=== PATIENT | male | born 1940 | race Caucasian/White ===

== ENCOUNTER 2022-03-09 05:44 | Observation (INO) ==
--- NOTE | 2022-02-26 10:36 | Anesthesiology Consultation ---
Date of Service February 26, 2022 Assessment & Plan (1) Encounter for pre-operative examination: Chart Review Chart Review: Patient NOT seen in Pre Admission Testing -Discussed preop EKG with Dr. Leong- changes from 2018 EKG- will need cardiac evaluation prior to surgery. Pt's and surgeon's office informed. Per nursing assessment 02/26/22, patient denies any recent travel. No known Covid positive exposures or Covid related symptoms. No known Covid infection in the past 90 days. Pt is fully vaccinated for Covid. Preop Covid testing scheduled 02/26/22= will await results. Cystolithopaxy 01/31/18= Done under [facility] with LMA #5. Atraumatic x 1. History Surgery Operation Date: 03/02/22 14:30 Proposed Procedures p Transurethral Resection Prostate - Serge Lara MD s Cystolithopaxy - Serge Lara MD Height/Weight Height: 5 ft 8 in Weight: 104.326 kg Allergies Allergy/AdvReac Type Severity Reaction Status Date / Time No Known Allergies Allergy Unverified 02/26/22 09:08 Medications Home Medications Medication Instructions Recorded Confirmed Last Taken aspirin 81 mg capsule 81 mg PO QAM 02/26/22 02/26/22 Unknown tamsulosin 0.4 mg capsule 0.4 mg PO QPM 02/26/22 02/26/22 Unknown Past Medical History Medical History Bladder calculi BPH w urinary obs/LUTS History of colon cancer (~2013) Osteoarthritis Past Family History Family History Other No family history of adverse response to anesthesia Past Surgical History Surgical History History of cataract surgery bilateral History of cholecystectomy open History of colon resection (~2013) [facility] History of colonoscopy History of esophagogastroduodenoscopy (EGD) History of tonsillectomy S/p total knee replacement, bilateral Social History Smoking Status: Never smoker Do You Dip or Chew Tobacco: No Hx Alcohol Use: No Hx Substance Use: No substance use type: does not use Testing Laboratory Results 02/17/22= WBC: 8.83 H/H: 14.8/45.9 PLATELETS: 159 SODIUM: 144 POTASSIUM: 4.0 CHLORIDE: 113 CO2: 25.3 BUN: 15.9 CREATININE: 1.03 GLUCOSE: 114 02/09/22= UA: Large urine blood, positive urine nitrite, 10-30 urine RBC, 2+ urine bacteria URINE CULTURE: Coag negative Staphylococcus 70,000 CFU/ml Electrocardiogram Date: 02/17/22 Findings: + SB @ (56bpm ) Inferior myocardial infarction, probably old (40+ ms Q wave and/or ST/T abnormality in II/aVF) Anterolateral myocardial infraction of indeterminate age (40+ ms Q wave in II/aVL/V3-V6) Chest X-Ray Date: 02/17/22 Findings: + NAD
[2022-03-09] MEDS ORDERED: LACTATED RINGER'S 1,000 ML IV SCH (06:00)
[2022-03-09] MEDS ORDERED: CIPROFLOXACIN / D5W 400 MG/200 ML BAG IV SCH (06:00)
[2022-03-09] MEDS ORDERED: ePHEDrine sulfate 50 MG/ML AMP IV PRN (06:48)
[2022-03-09] MEDS ORDERED: ONDANSETRON INJ 2 MG/ML 2 ML VIAL IV PRN (06:48)
[2022-03-09] MEDS ORDERED: ATROPINE SULFATE 0.1 MG/ML 10ML SYR IV PRN (06:48)
[2022-03-09] MEDS ORDERED: fentaNYL citrate 100 MCG/2 ML VIAL IV PRN (06:48)
[2022-03-09] MEDS ORDERED: LIDOCAINE 2% 2 ML VIAL/AMP(20MG/ML) INFIL ONE (07:07)
[2022-03-09] MEDS ORDERED: ONDANSETRON INJ 2 MG/ML 2 ML VIAL ONE (07:07)
[2022-03-09] MEDS ORDERED: ePHEDrine sulfate 50 MG/ML AMP ONE (07:07)
[2022-03-09] MEDS ORDERED: PHENYLEPHRINE 100MCG/ML 5ML SYR ONE (07:07)
[2022-03-09] MEDS ORDERED: PROPOFOL IV EMULSION 10 MG/ML 20 ML VIAL IV ONE (07:07)
[2022-03-09] MEDS ORDERED: fentaNYL citrate 100 MCG/2 ML VIAL ONE (07:08)
--- NOTE | 2022-03-09 07:24 | History & Physical Bridge Note ---
Date of Service March 09, 2022 History & Physical Bridge Note I have examined the patient, reviewed the History & Physical and in the interval since the performance of the History & Physical I have noted the following changes of clinical significance: no changes noted
--- NOTE | 2022-03-09 09:16 | Operative Report ---
PG Post Operative Report Pre & Post Diagnosis Operation Date: 03/09/22 07:30 Pre-Op Diagnosis: Benign Prostatic Hyperplasia, Bladder Stones Post-Op Diagnosis: Benign Prostatic Hyperplasia, Bladder Stones I identified the patient and participated in the time-out.: Yes Procedure Operation Date: 03/09/22 07:30 Actual Procedures p Transurethral Resection Prostate - Serge Lara MD s Cystolithopaxy - Serge Lara MD Surgeon Serge Lara MD Lead Based Paint Technician none Estimated Blood Loss 0 Findings Consistent with Post-Op Diagnosis Specimens 1. Bladder stones for chemical analysis Description of Procedure The patient was identified in the preoperative holding area, appropriate informed consents were reviewed and completed and the patient was transferred to the operative suite. Upon arrival, appropriate antibiotics and anesthesia were administered and the patient was placed in dorsal lithotomy position and prepped and draped in sterile fashion. To begin the case I attempted to pass a 26 Palauan resectoscope, however, his meatus was quite stenotic and required a dilation. I began at 16 Palauan and di lated to 30 Palauan. I was unable to subsequently pass the scope without incident. 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 His prostate is enlarged with a high bladder neck and intravesical intrusion circumferentially. His bladder also is filled with stones. There were innumerable small stones in approximately 8-10 larger stones over each over 1 to 2 cm in size on initial imaging it appeared that there was one very large calculus but I think this was a series of these smaller stones that were superimposed upon each other. His bladder is trabeculated but otherwise healthy. Given the high bladder neck, access to the stones was somewhat challenging so I begin the case with a button electrode and I incised the bladder neck at 5 and 7:00 and then resected the intervening tissue. This drastically improved the appearance of the bladder neck and allowed easier access to the stones. At that time I switched to a laser bridge and a 1000 m laser fiber and began to fragment the largest stones. We proceeded through all stones until I could irrigate the stone debris out of the bladder through the scope. After confirming that all stone debris had been removed I turned my attention back to the prostate. Utilizing the button electrode I resected the left and right lateral lobes followed by the intravesical components of the prostate. There was some redundant anterior tissue which was treated as well. I completed my resection by trimming apical tissues and ensuring meticulous hemostasis. His prostatic fossa was widely patent at the conclusion of the case. Placed a 22 Palauan Lay catheter without incident and he was reversed of anesthesia and taken to the recovery room in stable condition. There were no complications. I attest to the content of the Intraoperative Record and any orders documented therein. Any exceptions are noted below.
[2022-03-09 09:33] LABS: Basophils # (auto) 0.03 K/uL (0-0.2); Basophils % (auto) 0.4 %; Eosinophils # (auto) 0.21 K/uL (0-0.5); Eosinophils % (auto) 2.5 %; Hematocrit (blood only) 44.8 % (42-52); Hemoglobin 15.1 g/dL (14.0-18.0); Immature Granulocytes # (auto) 0.04 K/uL (0.00-0.02); Immature Granulocytes % (auto) 0.5 %; Lymphocytes # (auto) 1.55 K/uL (1.2-3.4); Lymphocytes % (auto) 18.4 %; Mean Corpuscular Hemoglobin 30.8 pg (25-34); Mean Corpuscular Volume 91.2 fL (80-100); Mean Platelet Volume 10.3 fL (7.4-10.4); Monocytes # (auto) 0.52 K/uL (0.11-0.59); Monocytes % (auto) 6.2 %; Neutrophils # (auto) 6.08 K/uL (1.4-6.5); Platelet Count 149 K/uL (130-400); RDW Standard Deviation 47.1 fL (36.4-46.3); Red Blood Count 4.91 M/uL (4.7-6.1); White Blood Count 8.43 K/uL (4.8-10.8)
[2022-03-09 09:37] LABS: Mean Corpuscular Hgb Conc 33.7 g/dL (32-36)
[2022-03-09 09:45] LABS: BUN Creatinine Ratio 18.4 (10-20); Calcium 8.9 mg/dl (8.5-10.1); Creatinine Clr Calc Pharmacy 65.6 ml/min; Est GFR (Non-African American) 67.3 ml/min
--- NOTE | 2022-03-09 09:56 | Anesthesiology Progress Note ---
Date of Service March 09, 2022 Anesthesia Post Procedure Vital Signs Vital Signs: Temp Pulse Pulse Resp BP Pulse Ox 03/09/22 09:30 91 H 18 130/70 94 03/09/22 09:20 97.3 F L 93 H 18 151/95 H 95 03/09/22 09:10 93 H 18 148/86 H 96 03/09/22 09:02 97.2 F L 88 18 148/80 H 96 03/09/22 06:11 98.2 F 69 20 188/97 H 97 Transfer of Care Handoff Completed per policy Notes Mental Status: alert / awake / arousable and participated in evaluation Patient Amnestic to Procedure: Yes Nausea / Vomiting: adequately controlled Pain: adequately controlled Airway Patency, RR, SpO2: stable & adequate BP & HR: stable & adequate Hydration State: stable & adequate Anesthetic Complications: no major complications apparent and Pt Satisfied with anesthetic care
[2022-03-09] MEDS ORDERED: ACETAMINOPHEN 325 MG TAB PO PRN (09:57)
[2022-03-09] MEDS ORDERED: HYDROCODONE/ACETAMOPHEN 5/325MG TAB PO PRN (09:57)
[2022-03-09] MEDS: LACTATED RINGER'S 1,000 ML IV SCH (10:26)
[2022-03-10] MEDS: LACTATED RINGER'S 1,000 ML IV SCH (05:33)
[2022-03-10 07:12] LABS: Basophils # (auto) 0.02 K/uL (0-0.2); Basophils % (auto) 0.1 %; Eosinophils # (auto) 0.18 K/uL (0-0.5); Eosinophils % (auto) 1.2 %; Hematocrit (blood only) 44.7 % (42-52); Immature Granulocytes # (auto) 0.04 K/uL (0.00-0.02); Immature Granulocytes % (auto) 0.3 %; Lymphocytes # (auto) 1.28 K/uL (1.2-3.4); Lymphocytes % (auto) 8.8 %; Mean Corpuscular Hemoglobin 30.2 pg (25-34); Mean Corpuscular Hgb Conc 33.6 g/dL (32-36); Mean Corpuscular Volume 90.1 fL (80-100); Mean Platelet Volume 10.3 fL (7.4-10.4); Monocytes # (auto) 1.24 K/uL (0.11-0.59); Monocytes % (auto) 8.5 %; Neutrophils % (auto) 81.1 %; Platelet Count 184 K/uL (130-400); RDW Coefficient of Variation 14.2 % (11.5-14.5); RDW Standard Deviation 46.8 fL (36.4-46.3); Red Blood Count 4.96 M/uL (4.7-6.1); White Blood Count 14.56 K/uL (4.8-10.8)
[2022-03-10 07:31] LABS: BUN Creatinine Ratio 12.3 (10-20); Calcium 8.6 mg/dl (8.5-10.1); Creatinine Clr Calc Pharmacy 63.7 ml/min; Est GFR (African American) 75.4 ml/min; Potassium 3.8 mmol/L (3.5-5.1)
--- NOTE | 2022-03-10 08:07 | Urology Progress Note ---
Date of Service March 10, 2022 Assessment & Plan (1) Benign prostatic hyperplasia (BPH) with straining on urination: (2) Bladder calculi: Plan: Postop day #1 status post TURP and litholapaxy Plan for voiding trial this morningdischarge home after void Admission and Anticipated Discharge Date Admission Date: March 09, 2022 Subjective No major issues overnight Tolerated the catheter relatively well Pain controlled Urine is clear today Physical Exam Physical Exam: Well-positioned Lay catheter draining clear yellow urine Results & Data ([facility]) Vital Signs (Past 12 Hours) Vital Signs Temp Pulse Resp BP Pulse Ox 03/10/22 07:18 36.9 C 73 18 163/79 H 95 03/10/22 03:03 36.8 C 73 18 128/76 93 03/09/22 22:28 37.2 C 71 20 122/72 93 PG Care Time/CCT Total # of Minutes Spent Total Time Spent with Patient: Total time spent is greater than 50% in coordination of care (as documented) at patient's floor/unit and/or counseling patient: Coding Level of Care Code None Diagnoses Benign prostatic hyperplasia (BPH) with straining on urination N40.1; R39.16 Bladder calculi N21.0
--- NOTE | 2022-03-10 13:57 | Discharge Summary ---
Date of Service March 10, 2022 Admission HPI Per Admitting Provider 81-year-old male with BPH and bladder calculi who presents for transurethral resection of the prostate and cystolitholapaxy. Admission Exam Per Admitting Provider Constitutional well developed and well nourished Neck neck nontender Respiratory normal respiratory effort; no respiratory distress and does not use accessory muscles Cardiovascular Rate/Rhythm: regular rate Vessels: radial pulses present Extremities: no edema Gastrointestinal (Abdomen) Inspection/Auscultation: abdomen normal to inspection Percussion/Palpation: abdomen soft; abdomen nontender and no guarding Musculoskeletal Head/Neck/Chest: normocephalic and head atraumatic Extremities: extremities normal to inspection Skin no rashes and no lesions Trauma: no evidence of skin trauma Neurologic awake; not obtunded Speech / Cognition: normal speech Motor/Sensory: no tremor Psychiatric Orientation: alert and oriented x 3 Genitourinary no CVA tenderness Lymphatic no lymphadenopathy Principal Diagnosis Benign Prostatic Hyperplasia, Bladder Stones Discharge Exam Constitutional well developed and well nourished; no acute distress Respiratory no respiratory distress and no labored breathing Gastrointestinal (Abdomen) Inspection/Auscultation: abdomen normal to inspection Skin Warm and dry Neurologic moves all extremities and awake Psychiatric A+Ox3, euthymic affect Discharge Data Allergies Allergy/AdvReac Type Severity Reaction Status Date / Time No Known Allergies Allergy Verified 03/09/22 06:09 Procedures Performed Operation Date: 03/09/22 07:30 Actual Procedures p Transurethral Resection Prostate - Serge Lara MD s Cystolithopaxy - Serge Lara MD Hospital Course (1) BPH w urinary obs/LUTS: (2) Bladder calculi: 81yo M admitted status post TURP and cystolitholapaxy. - Tolerated procedure very well. - No acute issues postoperatively. - Progressed appropriately overnight. - Passed a voiding trial on the morning of POD#1. - Pt discharged home in stable condition. Total Time Total Time Spent Total Time Spent (In Minutes): 15 Discharge Plan Discharge Items Patient Disposition: Home - Self-Care Reason For Visit: Benign Prostatic Hyperplasia, Bladder Stones Discharge Diagnosis: Benign Prostatic Hyperplasia, Bladder Stones Condition on Discharge: Good Activity: Per Instructions section Lifting: Gradually increase as tolerated Bathing: No limitations Sexual Activity: When tolerated Exercise/Sports: Gradually increase as tolerated Non-emergency contact: Surgeon and Urologist Call non-emergency contact if: you have any medication questions, your symptoms worsen, your pain is not controlled and you have a fever Follow-up/Referrals: Serge Lara MD [Physician] - 06/02/22 3:30 pm Jose Rico MD [Primary Care Provider] - Diet: Regular Addtl Attending Provider Instructions: Please take all medications as prescribed and keep all follow-ups as scheduled. Please call our office at [phone] with any questions, concerns or need to reschedule appointments for any reason. We are happy to assist you. You can resume your aspirin tomorrow given your urine remains clear to light pink. Tips for your recovery at home: Dont be alarmed by brownish or reddish blood or clots in your urine. This is a result of the procedure. This may occur off and on for weeks to months after the procedure but should continue to improve. Drink plenty of fluids during the day (enough to keep your urine very light colored). This will help keep a healthy flow of urine. Do not lift >25 lbs until your followup. Avoid constipation. Please use a stool softener (Colace) as needed for the first two weeks after your procedure. When to call [facility] at [phone]: Your urine contains heavy blood clots or you are unable to urinate. You are constantly leaking urine. Fever of 101F or higher, chills, nausea, or vomiting. Your pain is not relieved with medication. Pending Studies at Discharge: No Stand-Alone Forms: [facility], Smoking Cessation Medications and DC Order Prescriptions: Continued aspirin 81 mg Capsule 81 mg PO QAM RF: 0 Discontinued tamsulosin 0.4 mg capsule 0.4 mg PO QPM RF: 0 Discharge Orders: Discharge Order (Routine); Ordered 03/10/22 Ordered By: Smita Lomax/Other Patient Handouts: Benign Prostatic Hyperplasia, Understanding Bladder Stones Admission Data Admit Date/Time: 03/09/22 08:57 Attending Provider: Serge Lara Admit Provider: Serge Lara Primary Care Provider: Jose Rico Other Interventions: Discharge Summary Assessment (RN) Last Done: 03/10/22 12:58 Coding Level of Care Code D/C DAY MANAGEMENT <30 MINS Diagnoses BPH w urinary obs/LUTS N40.1; N13.8 Bladder calculi N21.0
[2022-03-11 23:08] LABS: Component 2 DNR; Source BLADDER STONE
== END 2022-03-10 13:14 | disposition home or self-care (01) ==
LOC: ASU 05:44 → 3N 05:44
DX: A49.9 Bacterial infection, unspecified; N13.8 Other obstructive and reflux uropathy; N40.1 Benign prostatic hyperplasia with lower urinary tract symptoms; M19.90 Unspecified osteoarthritis, unspecified site; N21.0 Calculus in bladder; N39.0 Urinary tract infection, site not specified; Z79.82 Long term (current) use of aspirin